=== PATIENT | male | born 1990 ===

== ENCOUNTER 2018-06-02 15:42 | Observation (INO) | payer OTHER ==
[2018-06-02] MEDS ORDERED: Sodium Chloride 0.9% 1,000 ML IV STA (16:32)
--- NOTE | 2018-06-02 17:18 | C.PDOC ---
"History Of Present Illness 28-year-old male, presents to the emergency department with complaints of significant swelling to submandibular glands and fever for the past few days. Patient is taking Motrin with transient relief. Last dose was yesterday morning. Denies difficulty swallowing. States it is hard to move his head due to swelling. No other complaints at this time. Time Seen by Provider: 06/02/18 16:01 Chief Complaint (Nursing): ENT Problem History Per: Patient History/Exam Limitations: None Current Symptoms Are (Timing): Still Present Past Medical History Reviewed: Historical Data, Nursing Documentation, Vital Signs Vital Signs: Last Vital Signs Temp 99.8 F H 06/02/18 20:38 Pulse 71 06/02/18 20:38 Resp 18 06/02/18 20:38 BP 112/72 06/02/18 20:38 Pulse Ox 100 06/02/18 21:06 Family History: States: No Known Family Hx - Social History Hx Alcohol Use: No Hx Substance Use: No - Immunization History Hx Tetanus Toxoid Vaccination: Yes Hx Influenza Vaccination: No Hx Pneumococcal Vaccination: No Review Of Systems Constitutional: Positive for: Fever Cardiovascular: Negative for: Chest Pain Respiratory: Negative for: Shortness of Breath Gastrointestinal: Negative for: Vomiting, Abdominal Pain Musculoskeletal: Positive for: Neck Pain. Negative for: Back Pain Skin: Negative for: Rash Neurological: Negative for: Weakness, Numbness, Headache, Dizziness Physical Exam - Physical Exam Appears: Non-toxic, No Acute Distress Skin: Normal Color, Warm, Dry, No Rash Head: Atraumatic, Normacephalic Eye(s): bilateral: Normal Inspection Ear(s): Bilateral: Normal Nose: Normal Oral Mucosa: Moist Lips: Normal Appearing Gingiva: Normal Appearing, No Ulceration Throat: No Erythema, No Drooling, No Mass, Other (tonsils slightly enlarged, R.L , with white exudate on the right. No obvious erythema. ) Neck: No Step Off Deformity, Other (significant swelling to submandibular lymph nodes (+)tender to palpation) Chest: Symmetrical Cardiovascular: Rhythm Regular, No Murmur Respiratory: Normal Breath Sounds, No Accessory Muscle Use Extremity: Normal ROM, No Deformity, No Swelling Neurological/Psych: Oriented x3, Normal Speech ED Course And Treatment - Laboratory Results Result Diagrams: 06/02/18 17:35 06/02/18 17:35 O2 Sat by Pulse Oximetry: 100 (RA) Pulse Ox Interpretation: Normal - CT Scan/US ct neck Other Rad Studies (CT/US): Read By Radiologist, Radiology Report Reviewed CT/US Interpretation: [facility]. [facility]. Preliminary Radiology Report Call: [phone]. assistance Online chat: [email or web address]. Name: LILIANA GHOSH Age: 28Years M Date: 06/02/2018. Requesting Physician: Alicia Weiss PA-C : 1990. [facility] Procedure Ordered As Accession Number of. Images. CT NECK SOFT TISSUE. W. CT NECK SOFT TISSUE W. CONTRAST. [id number]. J. 310. Provided Clinical History: fever, swollen neck. EXAM: CT Neck With Intravenous Contrast. EXAM DATE/TIME: 06/02/2018 5:58 PM. CLINICAL HISTORY: 28 years old, male; Signs and symptoms; Mass, lump, or swelling in neck and other: Fever;. Additional info: Fever, swollen neck. TECHNIQUE: Axial computed tomography images of the neck with intravenous contrast. All CT scans at this. facility use at least one of these dose optimization techniques: automated exposure control; mA. and/ or kV adjustment per patient size (includes targeted exams where dose is matched to clinical. indication); or iterative reconstruction. Coronal and sagittal reformatted images were created and reviewed. CONTRAST: 100 mL of omnipaque 300 administered intravenously. COMPARISON: No relevant prior studies available. FINDINGS: Oropharynx: Enlarged bilateral palatine tonsils/ tonsillitis with mild associated oropharyngeal. narrowing. No peritonsillar abscess. Hypopharynx: Unremarkable. Larynx: Unremarkable. Normal epiglottis. Trachea: Unremarkable. Retropharyngeal space: Unremarkable. Submandibular/ parotid glands: Unremarkable. Glands are normal in size. Thyroid: Unremarkable. No enlarged or calcified nodules. Bones/joints: No acute fracture. Soft tissues: Unremarkable. LILIANA GHOSH | Preliminary Radiology Report. CONFIDENTIALITY STATEMENT. This report is intended only for the use of the referring physician , and only in accordance with law, If you received this in error, call . Page 2 of 2. Vasculature: No acute findings. Lymph nodes: Enlarged bilateral cervical lymph nodes measure up to 1.9 x 3.1 cm on the right and. 1.7 x 2.8 cm on the left. The largest of these lymph nodes demonstrates internal heterogeneity may. reflect developing necrotic lymph nodes. No drainable abscess at this time. Lung apices: Unremarkable as visualized. IMPRESSION: 1. Enlarged bilateral palatine tonsils/tonsillitis with mild associated oropharyngeal narrowing. 2. Enlarged bilateral cervical lymph nodes measure up to 1.9 x 3.1 cm on the right and 1.7 x 2.8 cm. on the left. The largest of these lymph nodes demonstrates internal heterogeneity may reflect. developing necrotic lymph nodes. Consider followup to resolution. Thank you for allowing us to participate in the care of your patient. Dictated and Authenticated by: Aldair Wallace MD. 06/02/2018 7:54 PM Eastern Time ([place] & [place]) Medical Decision Making Medical Decision Making: Plan: * CT Neck * Bloodwork * Chest X-Ray * Decadron, Rocephin, IVF, Toradol * Blood/Throat Culture * Throckmorton spot, Rapid Strep * UA * Reassess and Disposition CT reveals some nechrotic lymph nodes. Case discusses with Dr Bonilla, instructs Decadron, Rocephin and admission to hospitalist for observation. Case was d/w who accepted patient to med/surg for observation. Disposition - Disposition Disposition: HOSPITALIZED Disposition Time: 21:05 Condition: FAIR - Clinical Impression Clinical Impression: Lymphadenopathy, cervical - Scribe Statement The provider has reviewed the documentation as recorded by the Scribe (Carol Aj) All medical record entries made by the Scribe were at my direction and personally dictated by me. I have reviewed the chart and agree that the record accurately reflects my personal performance of the history, physical exam, medical decision making, and the department course for this patient. I have also personally directed, reviewed, and agree with the discharge instructions and disposition. Decision To Admit - Pt Status Changed To: Hospital Disposition Of: Observation - . Bed Request Type: Regular Admitting Physician: Matthew Espinoza Patient Diagnosis: Lymphadenopathy, cervical"
--- NOTE | 2018-06-02 17:26 | RAD ---
Date of service: 06/02/2018 HISTORY: neck swelling COMPARISON: No prior. TECHNIQUE: Chest PA and lateral FINDINGS: LUNGS: No active pulmonary disease. PLEURA: No significant pleural effusion identified. No pneumothorax apparent. CARDIOVASCULAR: Normal. OSSEOUS STRUCTURES: No significant abnormalities. VISUALIZED UPPER ABDOMEN: Normal. OTHER FINDINGS: None. IMPRESSION: No active disease.
[2018-06-02 17:44] LABS: BASO % 0.4 % (0.0-2.0); EOS # 0.1 K/uL (0.0-0.7); EOS % 1.2 % (0.0-4.0); HEMOGLOBIN 14.8 g/dL (12.0-18.0); LYMPH # 1.6 K/uL (1.0-4.3); LYMPH % 19.7 % (20.0-40.0); MEAN CELL VOLUME 87.1 fL (80.0-94.0); MEAN CORPUSCULAR HEMOGLOBIN 29.8 pg (27.0-31.0); MEAN CORPUSCULAR HGB CONC 34.2 g/dL (33.0-37.0); MEAN PLATELET VOLUME 11.6 fL (7.2-11.7); MONO # 0.8 K/uL (0.0-0.8); MONO % 9.5 % (0.0-10.0); NEUT # 5.5 K/uL (1.8-7.0); NEUT % 69.2 % (50.0-75.0); NRBC % 0.1 % (0.0-2.0); RBC 4.96 Mil/uL (4.40-5.90); RED CELL DISTRIBUTION WIDTH 13.5 % (11.5-14.5)
[2018-06-02 17:52] LABS: URINE BILIRUBIN NEGATIVE (NEGATIVE); URINE BLOOD 1+ (NEGATIVE); URINE CLARITY Clear (Clear); URINE COLOR Yellow (YELLOW); URINE GLUCOSE (UA) NORMAL (Normal); URINE LEUKOCYTE ESTERASE NEG Leu/uL (Negative); URINE PROTEIN 1+ mg/dL (NEGATIVE)
[2018-06-02 18:07] LABS: ALB/GLOB RATIO 1.3 (1.0-2.1); ALBUMIN 4.4 g/dL (3.5-5.0); ALT/SGPT 94 U/L (21-72); AMYLASE 69 U/L (30-110); AST/SGOT 52 U/L (17-59); BLOOD UREA NITROGEN 11 mg/dL (9-20); CALCIUM 9.4 mg/dl (8.6-10.4); GFR AFRICAN-AMERICAN > 60; GFR NON-AFRICAN AMERICAN > 60
[2018-06-02] MEDS ORDERED: Iohexol 300 100 ML IJ ONE (18:21)
[2018-06-02] MEDS ORDERED: Dexamethasone 4 mg/1 ml IVP STA (20:01)
[2018-06-02] MEDS ORDERED: cefTRIAXone IV 1 gm in Dextros 50 ML IVPB ONE (20:11)
--- NOTE | 2018-06-02 21:40 | CP.PCM.HP ---
<Keron Gillette - Last Filed: 06/03/18 05:16> History of Present Illness - History of Present Illness History of Present Illness: CC: Submandibular gland swelling HPI: Patient is a 28 year old male with no past medical history who presents to the ED with complaint of bilateral submandibular swelling that has been going on for 2-3 days that is exacerbated with swallowing or eating. Patient denies any preceding symptoms. Patient admits to associated symptoms of subjective fever, night sweats, chills, frontal/ right parietal headache and limited neck range of motion ( Right> Left). Patient denies any sick contact, sharing of utensils, recent sexual activities, penile discharge, testicular discomfort or swelling,cough, runny nose, sick contacts, SOB, chest pain, palpitations. Patient states that he took 2 pills of Motrin yesterday morning for fever. 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 Lives alone. Denies current or former use of tobacco, ETOH and illicit drugs. Present on Admission - Present on Admission Any Indicators Present on Admission: No Review of Systems - Constitutional Constitutional: Fever, Headache, Night Sweats. absent: Daytime Sleepiness, Excessive Sweating, Fatigue, Lethargy, Weakness - EENT Eyes: absent: Blurred Vision, Change in Vision Ears: absent: Decreased Hearing, Ear Discharge, Ear Pain, Dizziness Nose/Mouth/Throat: Odynophagia, Neck Pain. absent: Nasal Congestion, Nasal Discharge, Sinus Pressure, Change in Voice, Dysphagia, Hoarsness, Lip Swelling, Sore Throat, Throat Swelling, Tongue Swelling, Neck Mass - Cardiovascular Cardiovascular: absent: Chest Pain, Chest Pain at Rest, Dyspnea, Lightheadedness , Orthopnea, Palpitations - Respiratory Respiratory: absent: Cough, Dyspnea, Dyspnea on Exertion, Wheezing, Snoring, Stridor, Chest Congestion - Gastrointestinal Gastrointestinal: absent: Abdominal Pain, Nausea, Vomiting - Genitourinary Genitourinary: absent: Dysuria, Hematuria, Pyuria, Urinary Hesitance, Urinary Urgency - Musculoskeletal Musculoskeletal: absent: Back Pain, Numbness, Tingling - Neurological Neurological: Headaches. absent: Behavioral Changes, Disequilibrium, Dizziness , Syncope, Tingling, Weakness - Psychiatric Psychiatric: absent: Change in Appetite - Endocrine Endocrine: absent: Fatigue, Palpitations - Hematologic/Lymphatic Hematologic: absent: Lymphadenopathy Past Patient History - Past Social History Smoking Status: Never Smoked - PSYCHIATRIC Hx Substance Use: No - SURGICAL HISTORY Hx Surgeries: No - ANESTHESIA Hx Anesthesia: No Hx Anesthesia Reactions: No Hx Malignant Hyperthermia: No Meds Allergies/Adverse Reactions: Allergies Allergy/AdvReac Type Severity Reaction Status Date / Time No Known Allergies Allergy Verified 06/02/18 15:51 Physical Exam - Constitutional Appears: Well, No Acute Distress - Head Exam Head Exam: ATRAUMATIC, NORMAL INSPECTION - Eye Exam Eye Exam: EOMI, Normal appearance Pupil Exam: NORMAL ACCOMODATION - ENT Exam ENT Exam: Mucous Membranes Moist Additional comments: Bilateral submandibular swelling (R>L) Mouth exam: Right tonsil swelling with white patches mucous membrane - Neck Exam Neck exam: Positive for: Lymphadenopathy Additional comments: Submandibular lymphadenopathy - Respiratory Exam Respiratory Exam: Clear to Auscultation Bilateral, NORMAL BREATHING PATTERN. absent: Decreased Breath Sounds, Rhonchi, Wheezes, Respiratory Distress - Cardiovascular Exam Cardiovascular Exam: REGULAR RHYTHM, +S1, +S2. absent: Tachycardia, Diastolic murmur - GI/Abdominal Exam GI & Abdominal Exam: Normal Bowel Sounds, Soft. absent: Diminished Bowel Sounds , Distended, Tenderness - Extremities Exam Extremities exam: Positive for: normal inspection. Negative for: calf tenderness, pedal edema, tenderness - Neurological Exam Neurological exam: Alert, CN II-XII Intact, Normal Gait, Oriented x3 - Psychiatric Exam Psychiatric exam: Normal Affect, Normal Mood - Skin Skin Exam: Normal Color Results - Vital Signs Recent Vital Signs: Last Vital Signs Temp 99.8 F H 06/02/18 20:38 Pulse 71 06/02/18 20:38 Resp 18 06/02/18 20:38 BP 112/72 06/02/18 20:38 Pulse Ox 100 06/02/18 21:29 - Labs Result Diagrams: 06/02/18 17:35 06/02/18 17:35 Labs: Laboratory Results - last 24 hr 06/02/18 06/02/18 06/02/18 17:35 17:35 17:35 WBC 8.0 RBC 4.96 Hgb 14.8 Hct 43.2 MCV 87.1 MCH 29.8 MCHC 34.2 RDW 13.5 Plt Count 139 MPV 11.6 Neut % (Auto) 69.2 Lymph % (Auto) 19.7 L [place] % (Auto) 9.5 Eos % (Auto) 1.2 Baso % (Auto) 0.4 Neut # (Auto) 5.5 Lymph # (Auto) 1.6 [place] # (Auto) 0.8 Eos # (Auto) 0.1 Baso # (Auto) 0.0 Sodium 142 Potassium 4.2 Chloride 101 Carbon Dioxide 28 Anion Gap 16 BUN 11 Creatinine 0.9 Est GFR ( Amer) > 60 Est GFR (Non-Af Amer) > 60 Random Glucose 105 Calcium 9.4 Total Bilirubin 0.5 AST 52 ALT 94 H Alkaline Phosphatase 109 Total Protein 7.7 Albumin 4.4 Globulin 3.3 Albumin/Globulin Ratio 1.3 Amylase 69 Urine Color Yellow Urine Clarity Clear Urine pH 5.0 Ur Specific [place] 1.017 Urine Protein 1+ H Urine Glucose (UA) Normal Urine Ketones Negative Urine Blood 1+ H Urine Nitrate Negative Urine Bilirubin Negative Urine Urobilinogen 2.0 Ur Leukocyte Esterase Neg Urine WBC (Auto) 4 Urine RBC (Auto) 6 H Infectious [place] Assay Grp A Beta Strep Ag 06/02/18 06/02/18 17:35 20:09 WBC RBC Hgb Hct MCV MCH MCHC RDW Plt Count MPV Neut % (Auto) Lymph % (Auto) [place] % (Auto) Eos % (Auto) Baso % (Auto) Neut # (Auto) Lymph # (Auto) [place] # (Auto) Eos # (Auto) Baso # (Auto) Sodium Potassium Chloride Carbon Dioxide Anion Gap BUN Creatinine Est GFR ( Amer) Est GFR (Non-Af Amer) Random Glucose Calcium Total Bilirubin AST ALT Alkaline Phosphatase Total Protein Albumin Globulin Albumin/Globulin Ratio Amylase Urine Color Urine Clarity Urine pH Ur Specific [place] Urine Protein Urine Glucose (UA) Urine Ketones Urine Blood Urine Nitrate Urine Bilirubin Urine Urobilinogen Ur Leukocyte Esterase Urine WBC (Auto) Urine RBC (Auto) Infectious [place] Assay Negative Grp A Beta Strep Ag Negative Assessment & Plan (1) Submandibular gland swelling Assessment and Plan: Admit to Obs Consultation: * ENT, Dr. Carpio ---> help appreciated - Management as per recommendation -Currently NPO in anticipation for any ENT procedure Imaging: * CT NECK with IV contrast: Enlarged bilateral palatine tonsils/tonsillitis with mild associated oropharyngeal narrowing. Enlarged bilateral cervical lymph nodes measures up to 1.9 X 3.1 cm on the right and 1.7 x 2.8 cm on the left. The largest of these lymph nodes demonstrates internal heterogeneity may reflect developing necrotic lymph nodes. * Medications given in the ED: * Decadron 10mg IV once * Rocephin 1gm IV once All plans and management discussed with Dr. Espinoza Status: Acute <Matthew Espinoza P - Last Filed: 06/03/18 07:52> Results - Vital Signs Recent Vital Signs: Last Vital Signs Temp 97.6 F 06/03/18 07:00 Pulse 61 06/03/18 07:00 Resp 20 06/03/18 07:00 BP 106/63 06/03/18 07:00 Pulse Ox 98 06/03/18 07:00 - Labs Result Diagrams: 06/03/18 06:25 06/03/18 06:25 Labs: Laboratory Results - last 24 hr 06/02/18 06/02/18 06/02/18 17:35 17:35 17:35 WBC 8.0 RBC 4.96 Hgb 14.8 Hct 43.2 MCV 87.1 MCH 29.8 MCHC 34.2 RDW 13.5 Plt Count 139 MPV 11.6 Neut % (Auto) 69.2 Lymph % (Auto) 19.7 L [place] % (Auto) 9.5 Eos % (Auto) 1.2 Baso % (Auto) 0.4 Neut # (Auto) 5.5 Lymph # (Auto) 1.6 [place] # (Auto) 0.8 Eos # (Auto) 0.1 Baso # (Auto) 0.0 Sodium 142 Potassium 4.2 Chloride 101 Carbon Dioxide 28 Anion Gap 16 BUN 11 Creatinine 0.9 Est GFR ( Amer) > 60 Est GFR (Non-Af Amer) > 60 Random Glucose 105 Calcium 9.4 Phosphorus Magnesium Total Bilirubin 0.5 AST 52 ALT 94 H Alkaline Phosphatase 109 Total Protein 7.7 Albumin 4.4 Globulin 3.3 Albumin/Globulin Ratio 1.3 Amylase 69 Urine Color Yellow Urine Clarity Clear Urine pH 5.0 Ur Specific [place] 1.017 Urine Protein 1+ H Urine Glucose (UA) Normal Urine Ketones Negative Urine Blood 1+ H Urine Nitrate Negative Urine Bilirubin Negative Urine Urobilinogen 2.0 Ur Leukocyte Esterase Neg Urine WBC (Auto) 4 Urine RBC (Auto) 6 H Infectious [place] Assay Grp A Beta Strep Ag 06/02/18 06/02/18 06/03/18 17:35 20:09 06:25 WBC 4.9 RBC 4.91 Hgb 14.8 Hct 43.1 MCV 87.8 MCH 30.1 MCHC 34.2 RDW 13.7 Plt Count 152 MPV 11.8 H Neut % (Auto) 67.1 Lymph % (Auto) 26.9 [place] % (Auto) 4.9 Eos % (Auto) 0.0 Baso % (Auto) 1.1 Neut # (Auto) 3.3 Lymph # (Auto) 1.3 [place] # (Auto) 0.2 Eos # (Auto) 0.0 Baso # (Auto) 0.1 Sodium Potassium Chloride Carbon Dioxide Anion Gap BUN Creatinine Est GFR ( Amer) Est GFR (Non-Af Amer) Random Glucose Calcium Phosphorus Magnesium Total Bilirubin AST ALT Alkaline Phosphatase Total Protein Albumin Globulin Albumin/Globulin Ratio Amylase Urine Color Urine Clarity Urine pH Ur Specific [place] Urine Protein Urine Glucose (UA) Urine Ketones Urine Blood Urine Nitrate Urine Bilirubin Urine Urobilinogen Ur Leukocyte Esterase Urine WBC (Auto) Urine RBC (Auto) Infectious [place] Assay Negative Grp A Beta Strep Ag Negative 06/03/18 06:25 WBC RBC Hgb Hct MCV MCH MCHC RDW Plt Count MPV Neut % (Auto) Lymph % (Auto) [place] % (Auto) Eos % (Auto) Baso % (Auto) Neut # (Auto) Lymph # (Auto) [place] # (Auto) Eos # (Auto) Baso # (Auto) Sodium 141 Potassium 4.8 Chloride 104 Carbon Dioxide 25 Anion Gap 17 BUN 14 Creatinine 0.8 Est GFR ( Amer) > 60 Est GFR (Non-Af Amer) > 60 Random Glucose 145 H Calcium 9.2 Phosphorus 4.5 Magnesium 2.2 Total Bilirubin 0.4 AST 34 ALT 74 H D Alkaline Phosphatase 90 Total Protein 6.9 Albumin 3.9 Globulin 3.0 Albumin/Globulin Ratio 1.3 Amylase Urine Color Urine Clarity Urine pH Ur Specific [place] Urine Protein Urine Glucose (UA) Urine Ketones Urine Blood Urine Nitrate Urine Bilirubin Urine Urobilinogen Ur Leukocyte Esterase Urine WBC (Auto) Urine RBC (Auto) Infectious [place] Assay Grp A Beta Strep Ag Attending/Attestation - Attestation I have personally seen and examined this patient.: Yes I have fully participated in the care of the patient.: Yes I have reviewed all pertinent clinical information: Yes Notes (Text): 06/03/18 07:[address], with painless swelling on the right tonsil and whitish membrane for evaluation, no LN palpable in posterior neck, axilla, groin , liver, spleen normal in size, lab work stable. DD infections vs hematologic, oncologic, DD of pain less tonsilar swelling. ENT eval, hematology eval, LIVE CT with IV contrast to check for any other chain of involvement after [address]
[2018-06-02] MEDS ORDERED: Tdap Vaccine 0.5 ml Vial (10-64 yrs) IM ONE (22:15)
[2018-06-03 00:09] VITALS: RESP 20
[2018-06-03 06:55] LABS: ALB/GLOB RATIO 1.3 (1.0-2.1); ALBUMIN 3.9 g/dL (3.5-5.0); ALT/SGPT 74 U/L (21-72); AST/SGOT 34 U/L (17-59); BLOOD UREA NITROGEN 14 mg/dL (9-20); CALCIUM 9.2 mg/dl (8.6-10.4); GFR AFRICAN-AMERICAN > 60; GFR NON-AFRICAN AMERICAN > 60
[2018-06-03 07:23] LABS: BASO # 0.1 K/uL (0.0-0.2); BASO % 1.1 % (0.0-2.0); HEMOGLOBIN 14.8 g/dL (12.0-18.0); LYMPH # 1.3 K/uL (1.0-4.3); LYMPH % 26.9 % (20.0-40.0); MEAN CELL VOLUME 87.8 fL (80.0-94.0); MEAN CORPUSCULAR HEMOGLOBIN 30.1 pg (27.0-31.0); MEAN CORPUSCULAR HGB CONC 34.2 g/dL (33.0-37.0); MEAN PLATELET VOLUME 11.8 fL (7.2-11.7); MONO # 0.2 K/uL (0.0-0.8); MONO % 4.9 % (0.0-10.0); NEUT # 3.3 K/uL (1.8-7.0); NEUT % 67.1 % (50.0-75.0); RBC 4.91 Mil/uL (4.40-5.90); RED CELL DISTRIBUTION WIDTH 13.7 % (11.5-14.5); WHITE BLOOD COUNT 4.9 K/uL (4.8-10.8)
[2018-06-03 07:41] VITALS: BP 106/63; PULSE 61; TEMP 97.6; O2SAT 98
--- NOTE | 2018-06-03 07:57 | CP.PCM.PN ---
Subjective - Date & Time of Evaluation Date of Evaluation: 06/03/18 Objective - Vital Signs/Intake and Output Vital Signs (last 24 hours): Temp Pulse Resp BP Pulse Ox 97.6 F 61 20 106/63 98 06/03/18 07:00 06/03/18 07:00 06/03/18 07:00 06/03/18 07:00 06/03/18 07:00 Intake and Output: 06/03/18 06/03/18 06:59 18:59 Intake Total 25 Balance 25 - Labs Labs: 06/03/18 06:25 06/03/18 06:25
--- NOTE | 2018-06-03 10:48 | CT ---
Date of service: 06/02/2018 PROCEDURE: CT NECK WITH CONTRAST HISTORY: Fever, swollen neck COMPARISON: None TECHNIQUE: CT of the neck with intravenous contrast. Coronal and sagittal reformats generated. Intravenous contrast dose: 100 mL Visipaque Radiation dose: DLP 521.29 mGy-cm This CT exam was performed using one or more of the following dose reduction techniques: Automated exposure control, adjustment of the mA and/or kV according to patient size, and/or use of iterative reconstruction technique. FINDINGS: NASOPHARYNX: Within normal limits. SUPRAHYOID NECK: There is enlargement of bilateral palatine tonsils, larger on the right. There is an apparent 6 x 5 mm low density area with peripheral irregular enhancement in the right palatine tonsil anteriorly. There is mild narrowing of the oropharyngeal airway without significant airway compromise. The oral cavity, parapharyngeal space and retropharyngeal space of within normal limits. INFRAHYOID NECK: No abnormal enhancement or mass in the larynx, hypopharynx, and supraglottic space. Vocal cords intact. MASS: None. GLANDS: Parotid and submandibular glands unremarkable. Normal size thyroid gland, without nodule. LYMPH NODES: There are enlarged bilateral upper cervical chain lymph nodes, the largest right submandibular lymph node measures 3.1 x 2.0 cm. There are small low-attenuation areas within the enlarged right submandibular lymph node. CERVICAL SPINE: No fracture or focal lesion. Within normal limits for the patient's age VASCULAR STRUCTURES: There is normal intravascular enhancement. OTHER FINDINGS: None. IMPRESSION: 1. Findings are most compatible with acute tonsillitis with a subcentimeter phlegmon/developing abscess in the right anterior palatine tonsil. 2. Bilateral upper cervical chain lymphadenopathy, the largest right submandibular lymph node measures 3.1 x 2.0 cm with suppurative changes. A preliminary report was provided by [facility].
--- NOTE | 2018-06-03 14:05 | CP.PCM.DIS ---
<Jackeline Srinivasan - Last Filed: 06/03/18 21:58> Provider - Provider Date of Admission: 06/02/18 21:04 Attending physician: Barb Bennett MD Primary care physician: none Consults: hem/onc, ENT Time Spent in preparation of Discharge (in minutes): 45 Diagnosis - Discharge Diagnosis (1) Tonsillitis Status: Acute Priority: High Hospital Course - Lab Results Lab Results: Micro Results 06/02/18 20:09 Throat Group A Strep Throat Culture - Preliminary No growth. Most Recent Lab Values WBC 4.9 K/uL (4.8-10.8) 06/03/18 06:25 RBC 4.91 Mil/uL (4.40-5.90) 06/03/18 06:25 Hgb 14.8 g/dL (12.0-18.0) 06/03/18 06:25 Hct 43.1 % (35.0-51.0) 06/03/18 06:25 MCV 87.8 fL (80.0-94.0) 06/03/18 06:25 MCH 30.1 pg (27.0-31.0) 06/03/18 06:25 MCHC 34.2 g/dL (33.0-37.0) 06/03/18 06:25 RDW 13.7 % (11.5-14.5) 06/03/18 06:25 Plt Count 152 K/uL (130-400) 06/03/18 06:25 MPV 11.8 fL (7.2-11.7) H 06/03/18 06:25 Neut % (Auto) 67.1 % (50.0-75.0) 06/03/18 06:25 Lymph % (Auto) 26.9 % (20.0-40.0) 06/03/18 06:25 Rolette % (Auto) 4.9 % (0.0-10.0) 06/03/18 06:25 Eos % (Auto) 0.0 % (0.0-4.0) 06/03/18 06:25 Baso % (Auto) 1.1 % (0.0-2.0) 06/03/18 06:25 Neut # (Auto) 3.3 K/uL (1.8-7.0) 06/03/18 06:25 Lymph # (Auto) 1.3 K/uL (1.0-4.3) 06/03/18 06:25 Rolette # (Auto) 0.2 K/uL (0.0-0.8) 06/03/18 06:25 Eos # (Auto) 0.0 K/uL (0.0-0.7) 06/03/18 06:25 Baso # (Auto) 0.1 K/uL (0.0-0.2) 06/03/18 06:25 Sodium 141 mmol/L (132-148) 06/03/18 06:25 Potassium 4.8 mmol/L (3.6-5.2) 06/03/18 06:25 Chloride 104 mmol/L (98-107) 06/03/18 06:25 Carbon Dioxide 25 mmol/L (22-30) 06/03/18 06:25 Anion Gap 17 (10-20) 06/03/18 06:25 BUN 14 mg/dL (9-20) 06/03/18 06:25 Creatinine 0.8 mg/dL (0.8-1.5) 06/03/18 06:25 Est GFR ( Amer) > 60 06/03/18 06:25 Est GFR (Non-Af Amer) > 60 06/03/18 06:25 Random Glucose 145 mg/dL (75-110) H 06/03/18 06:25 Calcium 9.2 mg/dl (8.6-10.4) 06/03/18 06:25 Phosphorus 4.5 mg/dL (2.5-4.5) 06/03/18 06:25 Magnesium 2.2 mg/dL (1.6-2.3) 06/03/18 06:25 Total Bilirubin 0.4 mg/dL (0.2-1.3) 06/03/18 06:25 AST 34 U/L (17-59) 06/03/18 06:25 ALT 74 U/L (21-72) H D 06/03/18 06:25 Alkaline Phosphatase 90 U/L (38-126) 06/03/18 06:25 Total Protein 6.9 g/dL (6.3-8.3) 06/03/18 06:25 Albumin 3.9 g/dL (3.5-5.0) 06/03/18 06:25 Globulin 3.0 gm/dL (2.2-3.9) 06/03/18 06:25 Albumin/Globulin Ratio 1.3 (1.0-2.1) 06/03/18 06:25 Amylase 69 U/L (30-110) 06/02/18 17:35 Urine Color Yellow (YELLOW) 06/02/18 17:35 Urine Clarity Clear (Clear) 06/02/18 17:35 Urine pH 5.0 (5.0-8.0) 06/02/18 17:35 Ur Specific [place] 1.017 (1.003-1.030) 06/02/18 17:35 Urine Protein 1+ mg/dL (NEGATIVE) H 06/02/18 17:35 Urine Glucose (UA) Normal mg/dL (Normal) 06/02/18 17:35 Urine Ketones Negative mg/dL (NEGATIVE) 06/02/18 17:35 Urine Blood 1+ (NEGATIVE) H 06/02/18 17:35 Urine Nitrate Negative (NEGATIVE) 06/02/18 17:35 Urine Bilirubin Negative (NEGATIVE) 06/02/18 17:35 Urine Urobilinogen 2.0 mg/dL (0.2-1.0) 06/02/18 17:35 Ur Leukocyte Esterase Neg Meryl/uL (Negative) 06/02/18 17:35 Urine WBC (Auto) 4 /hpf (0-5) 06/02/18 17:35 Urine RBC (Auto) 6 /hpf (0-3) H 06/02/18 17:35 Infectious Rolette Assay Negative (NEGATIVE) 06/02/18 17:35 Grp A Beta Strep Ag Negative (NEGATIVE) 06/02/18 20:09 - Hospital Course Hospital Course: Patient is a 28 year old male with no past medical history who presents to the ED with complaint of bilateral submandibular swelling that has been going on for 2-3 days that is exacerbated with swallowing or eating. Patient denies any preceding symptoms. Patient admits to associated symptoms of subjective fever, night sweats, chills, frontal/ right parietal headache and limited neck range of motion ( Right> Left). Patient denies any sick contact, sharing of utensils, recent sexual activities, penile discharge, testicular discomfort or swelling,cough, runny nose, sick contacts, SOB, chest pain, palpitations. Patient states that he took 2 pills of Motrin yesterday morning for fever. Patient was given one time doses of Decadron and Rocephin in the ED. The pt noted significant improvement of lymph node swelling, throat pain, and neck ROM within one day. CT neck findings were consistent with tonsillitis and bilateral cervical lymphadenopathy. Screens for influenza and Group A Strep were negative. Pt was seen by ENT and hem/onc- did not recommend any intervention, including Bx at this time. He was started on amoxicillin prior to discharge. At the time of discharge, the patient did not have any palpable cervical lymphadenopathy. His throat was moderately erythematous without exudate. Mallampati score of 2. He endorsed mild neck tenderness, which is much improved. He denied subjective fevers and chills. He is able to tolerate solid foods. He was instructed to follow-up at the resident clinic within one week of discharge. He will be referred to ENT if symptoms return/worsen. He was empirically discharged on oral amoxicillin x7 days. Discharge Exam - Head Exam Head Exam: ATRAUMATIC, NORMAL INSPECTION - Eye Exam Eye Exam: EOMI, Normal appearance - ENT Exam ENT Exam: Mucous Membranes Moist - Neck Exam Neck exam: Full Rom, Normal Inspection, Tenderness (mild b/l) Additional comments: no palpable LNs - Respiratory Exam Respiratory Exam: Clear to PA & Lateral, NORMAL BREATHING PATTERN - Cardiovascular Exam Cardiovascular Exam: REGULAR RHYTHM, +S1, +S2 - GI/Abdominal Exam GI & Abdominal Exam: Soft - Rectal Exam Rectal Exam: Deferred - Extremities Exam Extremities exam: full ROM, normal inspection - Back Exam Back exam: NORMAL INSPECTION - Neurological Exam Neurological exam: Alert, CN II-XII Intact, Normal Gait, Oriented x3 - Psychiatric Exam Psychiatric exam: Normal Affect, Normal Mood - Skin Skin Exam: Dry, Intact, Normal Color, Warm Discharge Plan - Discharge Medications Prescriptions: Amoxicillin [Amoxil 500 mg Cap] 500 mg PO Q8H #20 cap - Follow Up Plan Condition: IMPROVED Disposition: HOME/ ROUTINE Patient education suggested?: Yes Instructions: Swelling, Amoxicillin Additional Instructions: Patient is stable for discharge home as per Dr. Bennett. Patient is to follow- up with [facility] ([phone]) within 1 week of discharge. If patients lymphadenopathy worsens, he will be referred to ENT for further evaluation. Patient is being discharged with prescription for amoxicillin 500 mg by mouth every 8 hours for the next 7 days. Patient is to return to the ED if symptoms recur or are worsening. This was explained to the patient who understands and agrees. Referrals: [facility] [Outside] <Barb Bennett - Last Filed: 06/04/18 19:55> Provider - Provider Date of Admission: 06/02/18 21:04 Attending physician: Barb Bennett MD Hospital Course - Lab Results Lab Results: Micro Results 06/02/18 16:45 Blood Blood Culture - Preliminary NO GROWTH AFTER 48 HOURS 06/02/18 16:45 Blood Blood Culture - Preliminary NO GROWTH AFTER 48 HOURS 06/02/18 20:09 Throat Group A Strep Throat Culture - Final NO BETA STREP GROUP A ISOLATED. Most Recent Lab Values WBC 4.9 K/uL (4.8-10.8) 06/03/18 06:25 RBC 4.91 Mil/uL (4.40-5.90) 06/03/18 06:25 Hgb 14.8 g/dL (12.0-18.0) 06/03/18 06:25 Hct 43.1 % (35.0-51.0) 06/03/18 06:25 MCV 87.8 fL (80.0-94.0) 06/03/18 06:25 MCH 30.1 pg (27.0-31.0) 06/03/18 06:25 MCHC 34.2 g/dL (33.0-37.0) 06/03/18 06:25 RDW 13.7 % (11.5-14.5) 06/03/18 06:25 Plt Count 152 K/uL (130-400) 06/03/18 06:25 MPV 11.8 fL (7.2-11.7) H 06/03/18 06:25 Neut % (Auto) 67.1 % (50.0-75.0) 06/03/18 06:25 Lymph % (Auto) 26.9 % (20.0-40.0) 06/03/18 06:25 Rolette % (Auto) 4.9 % (0.0-10.0) 06/03/18 06:25 Eos % (Auto) 0.0 % (0.0-4.0) 06/03/18 06:25 Baso % (Auto) 1.1 % (0.0-2.0) 06/03/18 06:25 Neut # (Auto) 3.3 K/uL (1.8-7.0) 06/03/18 06:25 Lymph # (Auto) 1.3 K/uL (1.0-4.3) 06/03/18 06:25 Rolette # (Auto) 0.2 K/uL (0.0-0.8) 06/03/18 06:25 Eos # (Auto) 0.0 K/uL (0.0-0.7) 06/03/18 06:25 Baso # (Auto) 0.1 K/uL (0.0-0.2) 06/03/18 06:25 Sodium 141 mmol/L (132-148) 06/03/18 06:25 Potassium 4.8 mmol/L (3.6-5.2) 06/03/18 06:25 Chloride 104 mmol/L (98-107) 06/03/18 06:25 Carbon Dioxide 25 mmol/L (22-30) 06/03/18 06:25 Anion Gap 17 (10-20) 06/03/18 06:25 BUN 14 mg/dL (9-20) 06/03/18 06:25 Creatinine 0.8 mg/dL (0.8-1.5) 06/03/18 06:25 Est GFR ( Amer) > 60 06/03/18 06:25 Est GFR (Non-Af Amer) > 60 06/03/18 06:25 Random Glucose 145 mg/dL (75-110) H 06/03/18 06:25 Calcium 9.2 mg/dl (8.6-10.4) 06/03/18 06:25 Phosphorus 4.5 mg/dL (2.5-4.5) 06/03/18 06:25 Magnesium 2.2 mg/dL (1.6-2.3) 06/03/18 06:25 Total Bilirubin 0.4 mg/dL (0.2-1.3) 06/03/18 06:25 AST 34 U/L (17-59) 06/03/18 06:25 ALT 74 U/L (21-72) H D 06/03/18 06:25 Alkaline Phosphatase 90 U/L (38-126) 06/03/18 06:25 Total Protein 6.9 g/dL (6.3-8.3) 06/03/18 06:25 Albumin 3.9 g/dL (3.5-5.0) 06/03/18 06:25 Globulin 3.0 gm/dL (2.2-3.9) 06/03/18 06:25 Albumin/Globulin Ratio 1.3 (1.0-2.1) 06/03/18 06:25 Amylase 69 U/L (30-110) 06/02/18 17:35 Urine Color Yellow (YELLOW) 06/02/18 17:35 Urine Clarity Clear (Clear) 06/02/18 17:35 Urine pH 5.0 (5.0-8.0) 06/02/18 17:35 Ur Specific [place] 1.017 (1.003-1.030) 06/02/18 17:35 Urine Protein 1+ mg/dL (NEGATIVE) H 06/02/18 17:35 Urine Glucose (UA) Normal mg/dL (Normal) 06/02/18 17:35 Urine Ketones Negative mg/dL (NEGATIVE) 06/02/18 17:35 Urine Blood 1+ (NEGATIVE) H 06/02/18 17:35 Urine Nitrate Negative (NEGATIVE) 06/02/18 17:35 Urine Bilirubin Negative (NEGATIVE) 06/02/18 17:35 Urine Urobilinogen 2.0 mg/dL (0.2-1.0) 06/02/18 17:35 Ur Leukocyte Esterase Neg Meryl/uL (Negative) 06/02/18 17:35 Urine WBC (Auto) 4 /hpf (0-5) 06/02/18 17:35 Urine RBC (Auto) 6 /hpf (0-3) H 06/02/18 17:35 Infectious Rolette Assay Negative (NEGATIVE) 06/02/18 17:35 Grp A Beta Strep Ag Negative (NEGATIVE) 06/02/18 20:09 Attending/Attestation - Attestation I have personally seen and examined this patient.: Yes I have fully participated in the care of the patient.: Yes I have reviewed all pertinent clinical information, including history, physical exam and plan: Yes Notes (Text): Patient was seen and examined by Dr Bonilla ENT surgeon. Pt feels better. LN is resolving Dr Bonilla recommend to d/c home on oral antibiotics and follow him as an out patient Patient was explained to follow ENT physician and return to ER or get medical help if he his neck LN get bigger or pain
[2018-06-03] MEDS ORDERED: Pneumococcal 23-Valent Vaccine IM ONE (14:45)
--- NOTE | 2018-06-03 23:45 | CON ---
DATE: 06/02/2018 REASON FOR CONSULTATION: Neck lymphadenopathy. REQUESTING PHYSICIAN: Matthew Espinoza MD HISTORY OF PRESENT ILLNESS: This is a 28-year-old male who for a couple of days has been having increasing lymphadenopathy in both sides of his neck without pain. No throat pain. No dysphagia. No hoarseness. The patient was admitted to the hospital, was put on antibiotics and steroids. The lymphadenopathy has at this point resolved. PAST MEDICAL HISTORY: As noted in the chart by me. MEDICATIONS: As noted in the chart by me. PHYSICAL EXAMINATION: HEAD: Atraumatic and normocephalic. FACE: Good facial movements bilaterally. CONSTITUTIONAL: Well fed, well nourished. COMMUNICATION: Communicates well and appropriately. EXTERNAL NOSE AND EARS: No masses, no lesions, no erythema, and no edema. INTERNAL NOSE: Deviated septum. No masses, no lesions, no erythema, and no edema. ORAL CAVITY AND OROPHARYNX: No masses, no lesions, no erythema, and no edema. LIPS AND GUMS: No masses, no lesions, no erythema, and no edema. NECK: Supple. THYROID: No thyromegaly. No goiter. LYMPH NODES: No lymphadenopathy of the neck. NEUROLOGIC: The patient is alert, awake, and oriented x3. ASSESSMENT: 1. Lymphadenopathy, resolved. 2. Deviated septum. PLAN: The patient can be discharged home from an ENT point. If the lymphadenopathy returns, the patient was told to come back to the hospital and at that point, the patient will need to have a biopsy done. Ron Carpio MD
[2018-06-05] MEDS ORDERED: Pneumococcal 23-Valent Vaccine IM ONE (10:00)
== END 2018-06-03 16:01 | disposition home or self-care (01) ==
LOC: C.ER 15:42 → C.9E 21:04 → C.3T 21:52
PROVIDERS: ADMIT Internal Medicine; ATTEND Internal Medicine
DX: J03.90 Acute tonsillitis, unspecified (principal); J34.2 Deviated nasal septum
CPT/HCPCS: 36415; 70491; 71046; 80053; 81001; 82150; 83735; 84100; 85025; 86308; 87040; 87070; 87430; 96360; 96365; 96374; 99284; G0378; J0696; J1100; J1885; J7030; Q9967